=== PATIENT | female | born 1955 | race Caucasian/White ===

== ENCOUNTER 2016-05-15 08:16 | Inpatient (IN) | payer OTHER ==
--- NOTE | 2016-05-15 08:53 | EDPHY ---
H & P Stated Complaint: 1 hr epiisode this am 0630 of word finding difficulty and l hand weakness Time Seen by Provider: 05/15/16 08:25 - Personal History Current Tetanus/Diphtheria Vaccine: Yes Tetanus Vaccine Date: last 10 years - Medical/Surgical History Hx Asthma: No Hx Chronic Respiratory Disease: No Hx Diabetes: No Hx Cardiac Disease: Yes Hx Renal Disease: No Hx Cirrhosis: No Hx Alcoholism: No Hx HIV/AIDS: No Hx Splenectomy or Spleen Trauma: Yes Other PMH: psoriatic arthrithritis, heart attack, bypass with five stents and pacemaker. 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 - Social History Smoking Status: Never smoked Constitutional: Initial Vital Signs Temperature (C) 36.6 C 05/15/16 08:20 Heart Rate 90 05/15/16 08:20 Respiratory Rate 16 05/15/16 08:20 Blood Pressure 181/80 H 05/15/16 08:20 O2 Sat (%) 92 05/15/16 08:20 O2 Delivery Mode Room Air Allergies/Adverse Reactions: azithromycin [Azithromycin] Allergy (Verified 05/15/16 08:19) lactose [Lactose] Allergy (Verified 05/15/16 08:19) meperidine HCl [From Demerol] Allergy (Verified 05/15/16 08:19) oxycodone HCl [From Percocet] Allergy (Verified 05/15/16 08:19) Home Medications: Medication Instructions Recorded Aspirin [Aspirin 81mg (*)] 81 mg PO DAILY 01/05/15 FLUoxetine [Prozac 20 MG (*)] 20 mg PO DAILY 01/05/15 Hydrocodone/Acetaminophen [Vicodin 1 tab PO Q6 PRN 01/05/15 5-300 mg Tablet] LORazepam [Ativan (*)] 0.5 mg PO Q6 PRN 01/05/15 Methotrexate Sodium [Rheumatrex] 10 mg PO WE@0900 01/05/15 Methotrexate Sodium [Rheumatrex] 10 mg PO WE@1800 01/05/15 Metoprolol Succinate Xr [Toprol Xl 25 mg PO DAILY 01/05/15 25 mg (*)] Ramipril [Altace 2.5mg (*)] 2.5 mg PO HS 01/05/15 metFORMIN HCL [Glucophage 500 mg 500 mg PO BID 01/05/15 (*)] morphINE IR [morphINE IR 15 mg (*)] 15 mg PO HS 01/05/15 Medical Decision Making ED Course/Re-evaluation: CHIEF COMPLAINT: Hand weakness, speech difficulty HISTORY OF PRESENT ILLNESS: The patient is a 60 y/o female arriving with her complaining of a resolved episode of right hand weakness and speech difficulty this morning. She describes difficulty picking up a plate and being unable to figure out how to set it down and ultimately dropping it. Her reports the patient had associated difficulty with her speech. He describes her being unable to answer questions appropriately for several minutes even after the hand weakness improved. No associated weakness or paresthesias in other extremities or face. She does note a mild headache through the weekend. She has a significant cardiac history, but has never experienced these symptoms previously. She takes a baby aspirin, but was taken off her Plavix 3 months ago. She feels completely normal at time of assessment. REVIEW OF SYSTEMS: A 10 point review of systems was performed and is negative with the exception of the elements mentioned in the history of present illness. PHYSICAL EXAM: General Appearance: Alert, well hydrated, appropriate, and non-toxic appearing. Head: Atraumatic without scalp tenderness or obvious injury Eyes: Pupils equal, round, reactive to light and accommodation, EOMI, no trauma , no injection. Ears: Clear bilaterally, no perforation, normal landmarks Nose: Atraumatic, no rhinorrhea, clear. Throat: There is no erythema or exudates, no lesions, normal tonsils, mucus membranes moist. Neck: Supple, 2+ carotid upstroke, non-tender, no lymphadenopathy. Respiratory: No retractions, no distress, no wheezes, and no accessory muscle use. Lungs are clear to auscultation bilaterally. Cardiovascular: Regular rate and rhythm, no murmurs, rubs, or gallops. Bilateral carotid, radial, dorsalis pedis, and posterior tibial pulses intact. Good capillary refill all extremities. Gastrointestinal: Abdomen is soft, non-tender, non-distended, no masses, no rebound, no guarding, no peritoneal signs. Musculoskeletal: Normal active ROM of all extremities, atraumatic. Neurological: Alert, appropriate, and interactive. The patient has normal DTRs and non-focal cranial nerves, motor, sensory, and cerebellar exam. Normal straight-leg raise. No pronator drift. No facial droop. Skin: No rashes, good turgor, no nodules on palpation. PAST MEDICAL HISTORY: Psoriasis, Psoriatic arthritis, CAD, Hodgkin lymphoma PAST SURGICAL HISTORY: Pacemaker due to complete heart block, 5 stents 7 years ago, splenectomy, hypertension Prior medical records reviewed including admission 01/05/15 for fever. SOCIAL HISTORY: at bedside [facility] Worker: Dr. Ceballos DIAGNOSTICS/PROCEDURES/CRITICAL CARE TIME: Study: CT of the Head with and without IV contrast Indication: TIA symptoms, unable to get MRI Results: CT scan of the head was obtained. The results of the study are negative. The study was read by the radiologist, Dr. Kenyon. I viewed the images myself on the PACS system. The 12 lead EKG was interpreted by myself. Sinus rhythm rate 85. See hard copy and/or "tracemaster" electronic copy for interpretation. DIFFERENTIAL DIAGNOSIS: The differential diagnosis for the patient's neurologic deficits included but was not limited to peripheral causes, central causes including CVA, TIA, electrolyte abnormalities and dehydration, cardiogenic causes, atypical causes like migraine syndrome. MEDICAL DECISION MAKING: This is a 60 y/o female with a history of CAD status post 5 stents and psoriatic arthritis presenting after a short episode of TIA symptoms this morning shortly after waking. She and her describe right hand weakness and inappropriate speech that lasted for around 45 minutes. She is asymptomatic at time of assessment and has a normal neuro exam. She is unable to receive an MRI due to her pacemaker, so we will plan on a head CT with and without contrast due to her TIA symptoms. IV established, labs drawn, EKG ordered. 0925: CT is negative per Dr. Kenyon. Labs are unremarkable. EKG shows sinus rhythm. Plan to consult neurology. 0930: Consulted with Dr. Marshall, neurologist. He agrees with my plan for admission for full TIA work up. I discussed this with the patient and she agrees to admission. 0943: Dr. Angelo accepts admission to the [facility]. - Data Points Laboratory Results: Laboratory Results 05/15/16 08:35 05/15/16 08:35 05/15/16 05/15/16 08:35 08:35 WBC 13.00 10^3/uL H 10^3/uL (3.80-9.50) RBC 4.59 10^6/uL 10^6/uL (4.18-5.33) Hgb 13.9 g/dL g/dL (12.6-16.3) Hct 43.0 % % (38.0-47.0) MCV 93.7 fL fL (81.5-99.8) MCH 30.3 pg pg (27.9-34.1) MCHC 32.3 g/dL L g/dL (32.4-36.7) RDW 17.6 % H % (11.5-15.2) Plt Count 401 10^3/uL H 10^3/uL (150-400) MPV 12.1 fL H fL (8.7-11.7) Neut % (Auto) 63.5 % % (39.3-74.2) Lymph % (Auto) 23.3 % % (15.0-45.0) [place] % (Auto) 9.4 % % (4.5-13.0) Eos % (Auto) 2.5 % % (0.6-7.6) Baso % (Auto) 0.9 % % (0.3-1.7) Nucleat RBC Rel Count 0.2 % % (0.0-0.2) Absolute Neuts (auto) 8.26 10^3/uL H 10^3/uL (1.70-6.50) Absolute Lymphs (auto) 3.03 10^3/uL H 10^3/uL (1.00-3.00) Absolute Monos (auto) 1.22 10^3/uL H 10^3/uL (0.30-0.80) Absolute Eos (auto) 0.32 10^3/uL 10^3/uL (0.03-0.40) Absolute Basos (auto) 0.12 10^3/uL H 10^3/uL (0.02-0.10) Absolute Nucleated RBC 0.03 10^3/uL H 10^3/uL (0-0.01) Immature Gran % 0.4 % % (0.0-1.1) Immature Gran # 0.05 10^3/uL 10^3/uL (0.00-0.10) Sodium 140 mEq/L mEq/L (134-144) Potassium 4.1 mEq/L mEq/L (3.5-5.2) Chloride 102 mEq/L mEq/L (97-110) Carbon Dioxide 28 mEq/l mEq/l (22-31) Anion Gap 10 mEq/L mEq/L (8-16) BUN 18 mg/dL mg/dL (7-23) Creatinine 0.6 mg/dL mg/dL (0.6-1.0) Estimated GFR > 60 Glucose 113 mg/dL H mg/dL (70-100) Calcium 9.8 mg/dL mg/dL (8.5-10.4) Troponin I < 0.012 ng/mL ng/mL (0-0.034) Departure - Departure Disposition: [facility] Inpatient Acute Clinical Impression: TIA (transient ischemic attack) Qualifiers: Transient cerebral ischemia type: other Qualified Code(s): G45.8 - Other transient cerebral ischemic attacks and related syndromes Condition: Good Referrals: Nasra Paredes MD [Primary Care Provider] - As per Instructions Report Scribed for: Armani Multani Report Scribed by: Domonique Smallwood Date of Report: 05/15/16 Time of Report: 09:37
[2016-05-15 09:00] LABS: % IMMATURE GRANULYOCYTES 0.4 % (0.0-1.1); ABSOLUTE IMMATURE GRANULOCYTES 0.05 10^3/uL (0.00-0.10); ABSOLUTE NRBC COUNT 0.03 10^3/uL (0-0.01); ADD DIFF? NO; ADD MORPH? NO; ADD SCAN? NO; ATYPICAL LYMPHOCYTE FLAG 0 (0-99); FRAGMENT RBC FLAG 20 (0-99); HEMOGLOBIN 13.9 g/dL (12.6-16.3); LEFT SHIFT FLG 0 (0-99); LIPEMIA HEMOLYSIS FLAG 80 (0-99); MEAN CELL HEMOGLOBIN 30.3 pg (27.9-34.1); MEAN CELL HEMOGLOBIN CONCENTR. 32.3 g/dL (32.4-36.7); MEAN CELL VOLUME 93.7 fL (81.5-99.8); MEAN PLATELET VOLUME 12.1 fL (8.7-11.7); NRBC-AUTO% 0.2 % (0.0-0.2); PLATELET CLUMPS FLAG 0 (0-99); PLATELET COUNT 401 10^3/uL (150-400); RED BLOOD CELL COUNT 4.59 10^6/uL (4.18-5.33); RED CELL DISTRIBUTION WIDTH 17.6 % (11.5-15.2)
[2016-05-15 09:06] LABS: ANION GAP 10 mEq/L (8-16); CALCIUM 9.8 mg/dL (8.5-10.4); CARBON DIOXIDE 28 mEq/l (22-31); CHLORIDE 102 mEq/L (97-110); CREATININE 0.6 mg/dL (0.6-1.0); GLOMERULAR FILTRATION RATE > 60; GLUCOSE 113 mg/dL (70-100); POTASSIUM 4.1 mEq/L (3.5-5.2); SODIUM 140 mEq/L (134-144)
[2016-05-15 09:18] LABS: TROPONIN I < 0.012 ng/mL (0-0.034)
--- NOTE | 2016-05-15 09:26 | CPEKG ---
Heart Rate: 85 RR Interval: 706 P-R Interval: 208 QRSD Interval: 92 QT Interval: 380 QTC Interval: 452 P [place]: 49 QRS [place]: -6 T Wave [place]: 8 EKG Severity - BORDERLINE ECG - EKG Impression: SINUS RHYTHM EKG Impression: CONSIDER INFERIOR INFARCT EKG Impression: CONSIDER ANTERIOR INFARCT Electronically Signed By: Armani Multani 15-May-2016 15:18:59
[2016-05-15] MEDS ORDERED: ASPIRIN 81 MG CHEWABLE TAB PO ONE (09:37)
[2016-05-15] MEDS ORDERED: IOPAMIDOL (ISOVUE-370) 150 ML BTL IV ONE (09:44)
[2016-05-15] MEDS ORDERED: NS 1,000 ML IV SCH (11:15)
[2016-05-15] MEDS ORDERED: NON-FORMULARY NEW DRUG (Hydrocodone/Acetaminophen [Norco 7.5-325 Tablet] 1 EACH) PO PRN (11:18)
[2016-05-15] MEDS ORDERED: D50W 25 GM/50 ML SYR IVP PRN (11:19)
[2016-05-15] MEDS ORDERED: HYDROCODONE/APAP 10/325 TAB PO PRN (11:33)
[2016-05-15 11:35] LABS: HEMOGLOBIN A1C 6.9 % (4.0-6.0)
--- NOTE | 2016-05-15 13:04 | PDEACUHP ---
History and Physical - Chief Complaint right hand weakness - History of Present Illness 60 yo F with PMH of CAD sp multiple stents as well as psoriatic arthritis presenting with brief episode of right hand weakness associated with word finding difficulties and slurred speech. She notes she was feeding her cats this morning and when she was carrying one of the plates to the kitchen in her right hand, she dropped it unexpectedly. She picked it up again and then when she was trying to place it on the counter, could not release it properly and dropped it again. Her was with her when this happened and he noticed she also didn't look right in her eyes, they seemed somewhat glazed over and she was not speaking normally--the words she was saying did not make sense and were slurred. She recalls this and notes that she knew what she wanted to say, but was not able to get the right words to come out. This entire episode lasted less than an hour and has since completely resolved. She has never had similar issues in the past. She has been getting over an URI recently and last night she took a celebrex which she does not normally do. She has had no chest pain, palpitations or sob. She has no issues with vision or hearing, no other numbness or weakness. History Information - Allergies/Home Medication List Allergies/Adverse Reactions: azithromycin [Azithromycin] Allergy (Verified 05/15/16 08:19) lactose [Lactose] Allergy (Verified 05/15/16 08:19) meperidine HCl [From Demerol] Allergy (Verified 05/15/16 08:19) oxycodone HCl [From Percocet] Allergy (Verified 05/15/16 08:19) Home Medications: Aspirin [Aspirin 81mg (*)] 81 mg PO DAILY 01/05/15 [Last Taken 05/14/16] FLUoxetine [Prozac 20 MG (*)] 20 mg PO DAILY 01/05/15 [Last Taken 05/14/16] Methotrexate Sodium [Rheumatrex] 10 mg PO WE@0900 01/05/15 [Last Taken 05/10/16] Methotrexate Sodium [Rheumatrex] 10 mg PO WE@1800 01/05/15 [Last Taken 05/10/16] Metoprolol Succinate Xr [Toprol Xl 25 mg (*)] 25 mg PO BID 01/05/15 [Last Taken 05/14/16] Ramipril [Altace 2.5mg (*)] 2.5 mg PO HS 01/05/15 [Last Taken 05/13/16] metFORMIN HCL [Glucophage 500 mg (*)] 500 mg PO BID 01/05/15 [Last Taken ] Hydrocodone/Acetaminophen [[place] 7.5-325 Tablet] 1 each PO Q6H PRN 05/15/16 [ Last Taken 05/14/16] LORazepam [Ativan (*)] 1 mg PO HS PRN 05/15/16 [Last Taken 05/14/16] Levothyroxine [Synthroid 50 mcg (*)] 50 mcg PO DAILY06 05/15/16 [Last Taken ] morphINE SR [Ms Contin/Oramorph 15 mg (*)] 15 mg PO HS 05/15/16 [Last Taken ] I have personally reviewed and updated: family history, medical history, social history, surgical history - Past Medical History arthritis (psoriatic arthritis on chronic immune suppression), coronary artery disease (sp 5 stents), cancer (Hodgkin's lymphoma ), diabetes type 2, fibromyalgia Additional medical history: chronic pain with continuous narcotic use and dependency. 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, , live in [place] Review of Systems ROS: 10pt was reviewed & negative except for what was stated in HPI & below Physical Exam Temp Pulse Resp BP Pulse Ox 36.6 C 83 19 140/69 H 95 05/15/16 08:20 05/15/16 11:02 05/15/16 11:02 05/15/16 11:02 05/15/16 11:02 Constitutional: no apparent distress, appears nourished Eyes: PERRL, anicteric sclera Ears, Nose, Mouth, Throat: moist mucous membranes, hearing normal, ears appear normal Cardiovascular: regular rate and rhythym, no murmur, rub, or gallop, No edema Respiratory: no respiratory distress, no rales or rhonchi, clear to auscultation Gastrointestinal: normoactive bowel sounds, soft, non-tender abdomen, No guarding, No rebound, No distension Skin: warm, normal color Musculoskeletal: full muscle strength, no muscle tenderness, No asymmetric calves, No abnormal gait Neurologic: AAOx3, sensation intact bilaterally, CN II-XII Intact, No weakness, No numbness Psychiatric: interacting appropriately, not anxious, not encephalopathic Lab Data & Imaging Review 05/15/16 08:35 05/15/16 08:35 WBC 13.00 10^3/uL (3.80-9.50) H 05/15/16 08:35 RBC 4.59 10^6/uL (4.18-5.33) 05/15/16 08:35 Hgb 13.9 g/dL (12.6-16.3) 05/15/16 08:35 Hct 43.0 % (38.0-47.0) 05/15/16 08:35 MCV 93.7 fL (81.5-99.8) 05/15/16 08:35 MCH 30.3 pg (27.9-34.1) 05/15/16 08:35 MCHC 32.3 g/dL (32.4-36.7) L 05/15/16 08:35 RDW 17.6 % (11.5-15.2) H 05/15/16 08:35 Plt Count 401 10^3/uL (150-400) H 05/15/16 08:35 MPV 12.1 fL (8.7-11.7) H 05/15/16 08:35 Neut % (Auto) 63.5 % (39.3-74.2) 05/15/16 08:35 Lymph % (Auto) 23.3 % (15.0-45.0) 05/15/16 08:35 [place] % (Auto) 9.4 % (4.5-13.0) 05/15/16 08:35 Eos % (Auto) 2.5 % (0.6-7.6) 05/15/16 08:35 Baso % (Auto) 0.9 % (0.3-1.7) 05/15/16 08:35 Nucleat RBC Rel Count 0.2 % (0.0-0.2) 05/15/16 08:35 Absolute Neuts (auto) 8.26 10^3/uL (1.70-6.50) H 05/15/16 08:35 Absolute Lymphs (auto) 3.03 10^3/uL (1.00-3.00) H 05/15/16 08:35 Absolute Monos (auto) 1.22 10^3/uL (0.30-0.80) H 05/15/16 08:35 Absolute Eos (auto) 0.32 10^3/uL (0.03-0.40) 05/15/16 08:35 Absolute Basos (auto) 0.12 10^3/uL (0.02-0.10) H 05/15/16 08:35 Absolute Nucleated RBC 0.03 10^3/uL (0-0.01) H 05/15/16 08:35 Immature Gran % 0.4 % (0.0-1.1) 05/15/16 08:35 Immature Gran # 0.05 10^3/uL (0.00-0.10) 05/15/16 08:35 Sodium 140 mEq/L (134-144) 05/15/16 08:35 Potassium 4.1 mEq/L (3.5-5.2) 05/15/16 08:35 Chloride 102 mEq/L (97-110) 05/15/16 08:35 Carbon Dioxide 28 mEq/l (22-31) 05/15/16 08:35 Anion Gap 10 mEq/L (8-16) 05/15/16 08:35 BUN 18 mg/dL (7-23) 05/15/16 08:35 Creatinine 0.6 mg/dL (0.6-1.0) 05/15/16 08:35 Estimated GFR > 60 05/15/16 08:35 Glucose 113 mg/dL (70-100) H 05/15/16 08:35 Hemoglobin A1c 6.9 % (4.0-6.0) H 05/15/16 Unknown Estim Average Glucose 151 mg/dL (68-126) H 05/15/16 Unknown Calcium 9.8 mg/dL (8.5-10.4) 05/15/16 08:35 Troponin I < 0.012 ng/mL (0-0.034) 05/15/16 08:35 Visualized and Interpreted imaging results: Yes Interpretation: head CT: negative. neck CTA: completely occluded left ICA, patent B vert arteries. head CTA: non occlusive distal M1 segment Visualized and Interpreted EKG results: Yes EKG Interpretation: Positive for: normal sinsus rhythm Assessment & Plan Assessment: TIA (transient ischemic attack) (Acute) 52 yo F with PMH of CAD, DM presenting with TIA # TIA: with brief right handed weakness with associated slurred speech and expressive aphasia. W/u thus far including head CT/head and neck CTA showing completely occluded left ICA but otherwise unremarkable (no MRI given PPM). Pacer interrogated without any significant arrythmias (PVCs only but remote). Echo performed and report pending. Patient was on asa [employer] so will transition to plavix. # occluded Left ICA: complete occlusion so not amenable to surgical intervention , location would explain her sxs however. Neuro to evaluate. # CAD: with hx of [place] and 5 stents, no chest pain or other acute issues, will need to f/u with Dr. Ceballos in the next couple of days # psoriatic arthritis: continue mtx # chronic pain with continuous narcotic use and dependency: continue op meds, no acute issues # dispo: observation status, likely can dc later today Patient new to my care. Old records reviewed and summarized as above. Care plan reviewed with Dr. Marshall including plans regarding completely occluded ICA. Further hx obtained from patients present at bedside.
[2016-05-15] MEDS: INSULIN LISPRO 100 UNIT/ML SC SCH ×2 (14:21→22:16)
[2016-05-15 15:05] LABS: CHOLESTEROL 246 mg/dL (140-220); CHOLESTEROL/HDL RATIO 5.72 RATIO (1.00-4.44); HIGH DENSITY LIPOPROTEIN 43 mg/dL (40-85); LDL/HDL RATIO 3.72 RATIO (1.00-3.22); LOW DENSITY LIPOPROTEIN 160 mg/dL (80-100); NON-HIGH DENSITY LIPOPROTEIN 203 mg/dL (90-129); TRIGLYCERIDE 219 mg/dL (35-135); VERY LOW DENSITY LIPOPROTEINS 43 mg/dL (8-25)
[2016-05-15] MEDS ORDERED: HEPARIN 10,000 UNIT/10 ML MDV IVP PRN (16:01)
[2016-05-15 17:17] LABS: % IMMATURE GRANULYOCYTES 0.5 % (0.0-1.1); ABSOLUTE IMMATURE GRANULOCYTES 0.06 10^3/uL (0.00-0.10); ABSOLUTE NRBC COUNT 0.03 10^3/uL (0-0.01); ADD DIFF? NO; ADD MORPH? NO; ADD SCAN? NO; ATYPICAL LYMPHOCYTE FLAG 0 (0-99); FRAGMENT RBC FLAG 10 (0-99); HEMATOCRIT 38.7 % (38.0-47.0); HEMOGLOBIN 12.6 g/dL (12.6-16.3); LEFT SHIFT FLG 0 (0-99); LIPEMIA HEMOLYSIS FLAG 80 (0-99); MEAN CELL HEMOGLOBIN 30.1 pg (27.9-34.1); MEAN CELL HEMOGLOBIN CONCENTR. 32.6 g/dL (32.4-36.7); MEAN CELL VOLUME 92.4 fL (81.5-99.8); NRBC-AUTO% 0.2 % (0.0-0.2); PLATELET CLUMPS FLAG 0 (0-99); PLATELET COUNT 368 10^3/uL (150-400); RED BLOOD CELL COUNT 4.19 10^6/uL (4.18-5.33); RED CELL DISTRIBUTION WIDTH 17.4 % (11.5-15.2)
[2016-05-15 17:56] LABS: INR 1.08 (0.83-1.16); PROTIME(PATIENT) 13.9 SEC (12.0-15.0)
[2016-05-15 17:57] LABS: APTT 26.9 SEC (23.0-38.0)
[2016-05-15] MEDS: HEPARIN/DEXTROSE 500 ML IV SCH (18:27)
--- NOTE | 2016-05-15 19:05 | ECHO ---
[id number] + + [address] : : [place] [address] : : [phone] + + Adult Echocardiographic Report + -----+ :Name: LAXMI KELLY JStudy Date: 05/15/2016 12:33 PM : : Hospital Admission Number: [id number] Location : 141: :: 1955 Gender: Female Height: 66 in : :Age: 60 yrs Race: WH Weight: 174 lb : :Reason For Study: Eval LV Fx : : BSA: 1.9 meters2 : :History: Ischemic Stroke, Hx of stents x 5 : + -----+ MMode/2D Measurements \T\ Calculations IVSd: 0.81 cm LVIDd: 4.8 cm FS: 37.3 % LVPWd: 1.1 cm LVIDs: 3.0 cm EDV(Teich): 105.4 ml ESV(Teich): 34.6 ml EF(Teich): 67.2 % Normal Measurement Values: + + :LVIDd (3.5-5.7cm) IVSd (0.6-1.1cm) LVPWd (0.6-1.1cm) Aortic Root (2.0-3.7cm)Left Atrium (1.5-4.0cm): :LV Vol(d) (76-115ml) LV Vol(s) (29-48ml) Ejec Fraction (50-65%)PV Roque (0.6- 1.2m/s) TV Roque (0.4-1.0m/s) : :MV E Roque (0.8-1.0m/s)MV A Roque (0.3-1.0m/s)LVOT Roque (0.7-1.2m/s) Asc Ao Roque ( 0.9-1.8m/s) : + + Doppler Measurements \T\ Calculations MV E max roque: Ao V2 max: LV V1 max: PA V2 max: 89.8 cm/sec 121.0 cm/sec 51.8 cm/sec 88.2 cm/sec MV A max roque: Ao max P.9 mmHgLV V1 max PG: PA max P.0 cm/sec 1.1 mmHg 3.1 mmHg MV E/A: 0.79 TR max roque: 233.0 cm/sec TR max P.7 mmHg RAP systole: 5.0 mmHg RVSP(TR): 26.7 mmHg Left Ventricle The left ventricle is normal in size. There is mild concentric left ventricular hypertrophy. The left ventricular ejection fraction is normal. There is Doppler evidence for diastolic dysfunction. Ejection Fraction = 67%. The left ventricular wall motion is normal. Right Ventricle The right ventricle is normal size. Atria The left atrial size is normal. Right atrial size is normal. Injection of contrast documented no interatrial shunt. The interatrial septum is intact with no evidence for an atrial septal defect. Mitral Valve The mitral valve is normal. There is no mitral valve stenosis. There is no mitral regurgitation noted. Tricuspid Valve Normal tricuspid valve. There is trace tricuspid regurgitation. Right ventricular systolic pressure is normal. Aortic Valve The aortic valve is normal in structure and function. The aortic valve is trileaflet. The aortic valve opens well. There is no aortic stenosis. There is no aortic insufficiency. Pulmonic Valve The pulmonic valve is normal in structure and function. There is no pulmonic valvular regurgitation. Great Vessels The aortic root is normal size. Pericardium/Pleural There is no pericardial effusion. There is a fat pad seen. Conclusion A complete two-dimensional transthoracic echocardiogram was performed (2D, M-mode, Doppler and color flow Doppler). There is no obvious source of embolus identified. If one is highly clinically suspected, then transesophageal echocardiography should be considered. There is mild concentric left ventricular hypertrophy. The left ventricular ejection fraction is normal. There is Doppler evidence for diastolic dysfunction. Ejection Fraction = 67%. The left ventricular wall motion is normal. There is trace tricuspid regurgitation. Right ventricular systolic pressure is normal. The aortic valve is normal in structure and function. The aortic valve is trileaflet. There is no pericardial effusion. There is a fat pad seen. Injection of contrast documented no interatrial shunt. The interatrial septum is intact with no evidence for an atrial septal defect. Final Reading Physician: Brown Gomez signed on 05/15/2016 07:04 PM Ordering Physician: Grabiel Marshall Performed By: Raphael Barclay, CS
[2016-05-15] MEDS ORDERED: HYDROCODONE/APAP 5/325 TAB PO PRN (20:11)
--- NOTE | 2016-05-15 21:56 | GCON ---
INPATIENT CONSULTATION NOTE. DATE OF CONSULTATION: 05/15/2016 CHIEF COMPLAINT: Suspected stroke. HISTORY OF PRESENT ILLNESS: Dr. Matt Angel of the hospitalist service consulted Neurology for evaluation of patient's acute stroke. Results of the evaluation were discussed with Dr. Carolyne Quintero, the hospitalist buttoner. This is a 60-year-old female with a prior history of significant heart disease with pacemaker who reported on the morning of May 15, 2015, she had an episode of transient right hand weakness and difficulty speaking. This lasted 45-60 minutes then completely resolved those symptoms afterwards. This has never happened before or happened since. She has been on aspirin and Plavix for cardiac problems but stopped the Plavix 3 months ago. She currently feels back to normal. Brain MRI was not possible due to her pacemaker. A head CT was unremarkable. CT angiogram of the head and neck showed an occluded left ICA as well as a left MCA partial thrombus. The patient has had no clinical neurologic problems since being admitted into the hospital. After the partial thrombus was detected, I personally called the stroke expert at [facility] and I discussed the case with him. He recommended beginning the heparin without a bolus and repeating a CT angiogram in 2-3 days later to ensure the partial thrombus had resolved. Otherwise, he recommended routine stroke evaluation. 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 SOCIAL HISTORY: Prior smoker but not smoking now. FAMILY HISTORY: Noncontributory. HOME MEDICATIONS: Aspirin 81 mg daily, Prozac, Vicodin, lorazepam, methotrexate , metoprolol, ramipril, metformin, morphine. ALLERGIES: Azithromycin, lactose, meperidine, oxycodone. REVIEW OF SYSTEMS: A 10-point review of systems negative except was placed in the HPI. PHYSICAL EXAM: VITAL SIGNS: Blood pressure is 181/80, heart rate 90, respirations 16, saturating 92% on room air, temperature 36.6 degrees Celsius. GENERAL: No acute distress. EYES: Funduscopic exam could not visualize optic discs. LUNGS: Clear to auscultation bilaterally. No rhonchi or rales. HEART : Regular rate and rhythm. No murmurs. No carotid bruits auscultated. NEUROLOGIC: Mental status: Alert and oriented to person, place and name. Memory, attention, language and fund of knowledge all appear intact. Cranial nerves: Pupils equal, round, react to light. Visual escalante full to confrontation. Extraocular muscles intact. Bilateral face intact to sensation and motor movement. Hearing intact to conversation. Uvula rises symmetrically. Tongue protrudes midline. Trap was 5/5 strength. Motor exam: Normal tone and strength in all 4 extremities. Sensory exam: All 4 extremities intact to light touch. No neglect. Reflexes: Bilateral patella 2/ 4. Coordination, bilateral [id number], nbro-ky-afml, rapid alternating movements are normal. Gait deferred. NIH stroke scale is 0. LABS: On May 15, 2016: CBC with a white blood cell count of 13, platelets 401. Troponin negative. Chemistry with glucose 113. RADIOLOGY: May 15, 2016, head CT shows no acute changes. I personally visualized this study. May 15, 2016, a CT angiogram of the head and neck showed occluded left ICA from the bifurcation down. There is a nonocclusive partial thrombosis in the small but distal left M1 segment. ASSESSMENT: 1. 45-60 minutes of speech disturbance and right arm weakness, most consistent with a transient ischemic attack or small stroke. 2. Distal small left M1 nonocclusive thrombus. 3. Occluded left ICA. 4. History of significant heart disease with current pacemaker. RECOMMENDATIONS: 1. Blood pressure goal less than 220/120 for the next 48 hours. 2. Hold anti-platelet agents and begin heparin without a bolus. Will repeat CT angiogram on Sunday to see if small thrombus has resolved per discussion the [facility] stroke expert. 3. H1AC pending. 4. Lipid panel pending. 5. DVT prophylaxis with heparin and SCDs. 6. Echocardiogram pending. 7. Twenty-four telemetry, if this is unremarkable or if in paroxysmal atrial fibrillation, marketing account executive rhythm monitoring will be via interpretation by her primary Rod Bending Machine Operator, Dr. Ceballos. 8. CT angiogram of the head, repeated on Sunday to see if a small nonocclusive thrombus resolved. 9. When heparin is no longer needed will plan on stopping outpatient aspirin and beginning Plavix 75 mg daily for long-term stroke prevention. 10. Followup 5 weeks after hospital discharge with the Neurology service is doing. DISCUSSION: It appears the patient likely is prone to develop atherosclerotic disease given her prior heart disease. It looks as if she has included her left ICA, likely chronically as she has not suffered a large stroke. Likely this had some distal propagation with an embolic shower from this left ICA occlusion causing embolization to her left M1. Likely we are witnessing some partial thrombus left over from that. I do not believe the patient likely had a significant stroke as she currently has no neurologic problems although we were not able to obtain a pacemaker to say exactly how much ischemia she may have had. 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 The patient does understand the increased risk of bleeding, particularly if there was a small stroke. However, on weighing the risks and benefits, it was felt that this was the best way to ensure the patient does well long-term. She and her fully understand the risk. Neurology will continue to follow closely. /[id number]/MODL MTDD
[2016-05-15] MEDS: morphINE SR 15 MG TAB PO SCH (22:10)
[2016-05-15] MEDS: RAMIPRIL 2.5 MG CAP PO SCH (22:11)
[2016-05-15] MEDS: METOPROLOL SUCCINATE XR 25 MG TAB PO SCH (22:11)
[2016-05-16] MEDS: LORazepam 1 MG TAB PO PRN ×2 (01:26→22:10)
[2016-05-16 06:27] LABS: % IMMATURE GRANULYOCYTES 0.2 % (0.0-1.1); ABSOLUTE IMMATURE GRANULOCYTES 0.02 10^3/uL (0.00-0.10); ABSOLUTE NRBC COUNT 0.05 10^3/uL (0-0.01); ADD DIFF? NO; ADD MORPH? NO; ADD SCAN? NO; ATYPICAL LYMPHOCYTE FLAG 10 (0-99); FRAGMENT RBC FLAG 10 (0-99); HEMATOCRIT 37.4 % (38.0-47.0); LEFT SHIFT FLG 0 (0-99); LIPEMIA HEMOLYSIS FLAG 80 (0-99); MEAN CELL HEMOGLOBIN 30.9 pg (27.9-34.1); MEAN CELL HEMOGLOBIN CONCENTR. 32.1 g/dL (32.4-36.7); MEAN CELL VOLUME 96.4 fL (81.5-99.8); NRBC-AUTO% 0.5 % (0.0-0.2); PLATELET CLUMPS FLAG 0 (0-99); PLATELET COUNT 327 10^3/uL (150-400); RED BLOOD CELL COUNT 3.88 10^6/uL (4.18-5.33); RED CELL DISTRIBUTION WIDTH 17.6 % (11.5-15.2)
[2016-05-16 06:39] LABS: ANION GAP 7 mEq/L (8-16); CALCIUM 8.9 mg/dL (8.5-10.4); CARBON DIOXIDE 24 mEq/l (22-31); CHLORIDE 110 mEq/L (97-110); CREATININE 0.5 mg/dL (0.6-1.0); GLOMERULAR FILTRATION RATE > 60; GLUCOSE 111 mg/dL (70-100); POTASSIUM 4.1 mEq/L (3.5-5.2); SODIUM 141 mEq/L (134-144)
[2016-05-16] MEDS: LEVOTHYROXINE 50 MCG TAB PO SCH (06:49)
[2016-05-16] MEDS: FLUoxetine 20 MG CAP PO SCH (07:45)
[2016-05-16] MEDS: METOPROLOL SUCCINATE XR 25 MG TAB PO SCH ×2 (07:45→21:21)
[2016-05-16] MEDS: INSULIN LISPRO 100 UNIT/ML SC SCH ×3 (07:46→19:05)
[2016-05-16] MEDS: ATORVASTATIN CALCIUM 40 MG TAB PO SCH (07:46)
[2016-05-16] MEDS ORDERED: ASPIRIN 81 MG CHEWABLE TAB PO SCH (09:00)
[2016-05-16] MEDS: HEPARIN/DEXTROSE 500 ML IV SCH (13:24)
--- NOTE | 2016-05-16 14:35 | HOSPPROG ---
Hospitalist Progress Note Assessment/Plan: 60 yo F with PMH of CAD, psoriatic arthritis admitted with TIA in setting of completely occluded L IcA and distal M1 segment thrombus # TIA: with brief right handed weakness with associated slurred speech and expressive aphasia. W/u thus far including head CT/head and neck CTA showing completely occluded left ICA as well as distal M1 segment thrombus. In review with neurology, plan is for heparin gtt x 48 hours with f/u CTA to determine if thrombus resolved. No further sxs since admission. Will dc home on plavix. # occluded Left ICA: as above, no indication for surgical intervention given complete occlusion # CAD: with hx of [place] and 5 stents, no chest pain or other acute issues, will need to f/u with Dr. Ceballos # psoriatic arthritis: continue mtx # chronic pain with continuous narcotic use and dependency: continue op meds, no acute issues # dispo: IP status, will need > 48 hours stay for eval/mgmt of above Care plan reviewed with patients present at bedside. Subjective: no significant overnight events, no further sxs Objective: Vital Signs Temp Pulse Resp BP Pulse Ox 36.8 C 83 18 130/84 H 92 05/16/16 07:48 05/16/16 13:55 05/16/16 13:55 05/16/16 13:55 05/16/16 13:55 Laboratory Results 05/16/16 05:30 05/16/16 05:30 PT 13.9 SEC (12.0-15.0) 05/15/16 17:05 INR 1.08 (0.83-1.16) 05/15/16 17:05 awake alert nad anicteric op clear rrr no mrg cta b soft +bs no cce warm dry well perfused oriented appropriate ICD10 Worksheet Patient Problems: Problems Problem Status Onset PNA (pneumonia) Acute CAD (coronary artery disease) Acute Leukocytosis Acute Rheumatoid arthritis Chronic History of splenectomy Chronic TIA (transient ischemic attack) Acute
--- NOTE | 2016-05-16 17:22 | NEUROPROG ---
Assessment: CC: F/U for M1 thrombus, TIA ~ HPI: This is a 60-year-old female with a prior history of significant heart disease with pacemaker who reported on the morning of May 15, 2015, she had an episode of transient right hand weakness and difficulty speaking.~ This lasted 45-60 minutes then completely resolved those symptoms afterwards.~ This has never happened before or happened since.~ She has been on aspirin and Plavix for cardiac problems but stopped the Plavix 3 months ago.~ She currently feels back to normal.~ Brain MRI was not possible due to her pacemaker.~ A head CT was unremarkable.~ CT angiogram of the head and neck showed an occluded left ICA as well as a left MCA partial thrombus.~ The patient has had no clinical neurologic problems since being admitted into the hospital.~ After the partial thrombus was detected, I personally called the stroke expert at [facility] and I discussed the case with him.~ He recommended beginning the heparin without a bolus and repeating a CT angiogram in 2-3 days later to ensure the partial thrombus had resolved.~ Otherwise, he recommended routine stroke evaluation. 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 ~ SHx:~ Prior smoker but not smoking now. FHx:~ Noncontributory. ~ O: 05/15/16- NIH stroke scale is 0. ~ Labs: 05/16/16- LDL 160, H1AC 6.9 ~ RADIOLOGY:~ - 05/15/16- head CT shows no acute changes - 05/15/16, a CT angiogram of the head and neck showed occluded left ICA from the bifurcation down.~ There is a nonocclusive partial thrombosis in the small but distal left M1 segment. - 05/15/16- TTE: no cardioembolic source found ~ ASSESSMENT:~ 1.~ 45-60 minutes of speech disturbance and right arm weakness, most consistent with a transient ischemic attack or small stroke. 2.~ Distal small left M1 non-occlusive thrombus. 3.~ Occluded left ICA. 4.~ History of significant heart disease with current pacemaker. ~ RECOMMENDATIONS:~ - Blood pressure goal less than 220/120 for the next 24 hours then bp < 140/90 fci - Hold anti-platelet agents and continue heparin without a bolus.~ Will repeat CT angiogram on Sunday to see if small thrombus has resolved per discussion the [facility] stroke expert. - H1AC < 7.0 (6.9) - LDL < 70 (160), recommend starting moderate dose statin - Twenty-four telemetry, if this is unremarkable or if in paroxysmal atrial fibrillation, group home rhythm monitoring will be via~ interpretation by her primary Ekg Manager, Dr. Ceballos of her pacemaker - CT angiogram of the head, repeated on Sunday to see if a small nonocclusive thrombus resolved. - When heparin is no longer needed will plan on stopping outpatient aspirin and beginning Plavix 75 mg daily for long-term stroke prevention. - Followup 5 weeks after hospital discharge with the Neurology service is doing. ~ 35 min spent with patient and her , majority of time spent counseling on prognosis and treatment options. Objective: Vital Signs Temp Pulse Resp BP Pulse Ox 36.8 C 83 18 130/84 H 92 05/16/16 07:48 05/16/16 13:55 05/16/16 13:55 05/16/16 13:55 05/16/16 13:55 Laboratory Results 05/16/16 05:30 05/16/16 05:30 PT 13.9 SEC (12.0-15.0) 05/15/16 17:05 INR 1.08 (0.83-1.16) 05/15/16 17:05 Allergies/Adverse Reactions: azithromycin [Azithromycin] Allergy (Verified 05/15/16 08:19) lactose [Lactose] Allergy (Verified 05/15/16 08:19) meperidine HCl [From Demerol] Allergy (Verified 05/15/16 08:19) oxycodone HCl [From Percocet] Allergy (Verified 05/15/16 08:19)
[2016-05-16] MEDS: RAMIPRIL 2.5 MG CAP PO SCH (21:21)
[2016-05-16] MEDS: morphINE SR 15 MG TAB PO SCH (21:21)
[2016-05-17] MEDS: HEPARIN/DEXTROSE 500 ML IV SCH (02:14)
[2016-05-17] MEDS: LEVOTHYROXINE 50 MCG TAB PO SCH (05:50)
[2016-05-17 06:17] LABS: % IMMATURE GRANULYOCYTES 0.3 % (0.0-1.1); ABSOLUTE IMMATURE GRANULOCYTES 0.04 10^3/uL (0.00-0.10); ABSOLUTE NRBC COUNT 0.04 10^3/uL (0-0.01); ADD DIFF? NO; ADD MORPH? NO; ADD SCAN? NO; ATYPICAL LYMPHOCYTE FLAG 10 (0-99); FRAGMENT RBC FLAG 20 (0-99); HEMATOCRIT 38.2 % (38.0-47.0); HEMOGLOBIN 12.3 g/dL (12.6-16.3); LEFT SHIFT FLG 0 (0-99); LIPEMIA HEMOLYSIS FLAG 80 (0-99); MEAN CELL HEMOGLOBIN 30.9 pg (27.9-34.1); MEAN CELL HEMOGLOBIN CONCENTR. 32.2 g/dL (32.4-36.7); MEAN PLATELET VOLUME 11.9 fL (8.7-11.7); NRBC-AUTO% 0.3 % (0.0-0.2); PLATELET CLUMPS FLAG 20 (0-99); PLATELET COUNT 353 10^3/uL (150-400); RED BLOOD CELL COUNT 3.98 10^6/uL (4.18-5.33); RED CELL DISTRIBUTION WIDTH 17.7 % (11.5-15.2)
[2016-05-17 07:40] VITALS: O2SAT 93
[2016-05-17] MEDS: ATORVASTATIN CALCIUM 40 MG TAB PO SCH (07:41)
[2016-05-17] MEDS: FLUoxetine 20 MG CAP PO SCH (07:41)
[2016-05-17] MEDS: METOPROLOL SUCCINATE XR 25 MG TAB PO SCH (07:44)
[2016-05-17] MEDS ORDERED: IOPAMIDOL (ISOVUE-370) 150 ML BTL IV ONE (08:25)
[2016-05-17] MEDS: INSULIN LISPRO 100 UNIT/ML SC SCH ×2 (08:45→13:39)
[2016-05-17] MEDS ORDERED: METHOTREXATE 2.5 MG TAB PO SCH ×2 (09:00→18:00)
[2016-05-17 12:14] VITALS: BP 115/66; PULSE 90; RESP 16; TEMP 98.3
--- NOTE | 2016-05-17 17:39 | PDDCSUM ---
Discharge Summary Discharge Summary: Dates of service 05/15-05/17/16 Discharge diagnosis: # TIA # distal M1 thrombus # completely occluded L ICA # small right ICA aneurysm # CAD # psoriatic arthritis # chronic pain with continous narcotic use and dependency Consultations: neurology Procedures performed: head CT, CTA head and neck, echocardiogram Hospital course by problem: # TIA: no events on tele, echo without source. Does have completely occluded L ICA and m1 thrombus. Thrombus improved on f/u imaging after 48 hour heparin gtt. Dc on asa/plavix. # small right ICA aneurysm: likely does not reuire intervention but will be set up for nsg f/u # occluded Left ICA: as above, no indication for surgical intervention given complete occlusion # CAD: with hx of [place] and 5 stents, no chest pain or other acute issues, will need to f/u with Dr. Ceballos # psoriatic arthritis: continue mtx # chronic pain with continuous narcotic use and dependency: continue op meds, no acute issues # HLD: sent home on atorvastatin # DM: borderline DM with A1c of 6.9, continue metformin and dietary modification DC home f/u with neurology and nsg > 35 min spent in dc of patient more than half in counseling g of patient and her as well coordination of care
== END 2016-05-17 13:30 | disposition home or self-care (01) | DRG 68 ==
LOC: F1N 10:22 → OBSVTOIN 16:04
PROVIDERS: ADMIT Internal Medicine; ATTEND Internal Medicine
DX: I65.22 Occlusion and stenosis of left carotid artery (principal); R73.03 Prediabetes; I25.10 Atherosclerotic heart disease of native coronary artery without angina pectoris; L40.50 Arthropathic psoriasis, unspecified; G89.29 Other chronic pain; F11.20 Opioid dependence, uncomplicated; I25.2 Old myocardial infarction; Z95.5 Presence of coronary angioplasty implant and graft; Z95.1 Presence of aortocoronary bypass graft; Z95.0 Presence of cardiac pacemaker; Z87.891 Personal history of nicotine dependence; Z85.72 Personal history of non-Hodgkin lymphomas
CPT/HCPCS: 85520-90; 92610-GN; 97165-GO; J1644; J1815; Q9967

== ENCOUNTER → 2016-10-16 | Outpatient (CLI) | payer OTHER | LOC: FIMAGING 08:27 | PROVIDERS: ATTEND Internal Medicine | DX: Z12.31 Encounter for screening mammogram for malignant neoplasm of breast (principal) | CPT/HCPCS: G0202 ==

== ENCOUNTER → 2016-11-01 | Outpatient (CLI) | payer OTHER | LOC: FIMAGING 14:46 | PROVIDERS: ATTEND Internal Medicine | DX: N63 Unspecified lump in breast (principal) | CPT/HCPCS: G0206 ==

== ENCOUNTER → 2016-11-13 | Outpatient (CLI) | payer OTHER ==
[~2016-11-13] MED LIST: BUPIVACAINE 0.5% 10 ML SDV ONE; LIDO/EPI 1% **Not for Epidural 20 ML MDV ONE; LIDOCAINE 1% 300 MG/30 ML SDV ONE; THROMBIN (BOVINE) 5,000 UNIT VIAL TP ONE
== END ==
LOC: FIMAGING 07:11
PROVIDERS: ATTEND Internal Medicine
PROC: 0HBT3ZX Excision of Right Breast, Percutaneous Approach, Diagnostic (ICD-10-PCS; principal; 2016-11-13)
DX: D24.1 Benign neoplasm of right breast (principal)
CPT/HCPCS: G0206

== ENCOUNTER → 2017-12-20 | Outpatient (CLI) | payer OTHER | LOC: FIMAGING 15:43 | PROVIDERS: ATTEND Internal Medicine | DX: Z12.31 Encounter for screening mammogram for malignant neoplasm of breast (principal); D24.9 Benign neoplasm of unspecified breast ==

== ENCOUNTER → 2018-01-24 | Outpatient (CLI) | payer OTHER | LOC: FIMAGING 15:42 | PROVIDERS: ATTEND Internal Medicine | DX: R92.8 Other abnormal and inconclusive findings on diagnostic imaging of breast (principal) ==

== ENCOUNTER 2018-02-21 07:24 | Emergency (ER) | payer OTHER ==
[2018-02-21 07:30] VITALS: BP 126/94
[2018-02-21] MEDS ORDERED: DOXYCYCLINE HYCLATE 100 MG CAP/TAB PO ONE (07:51)
--- NOTE | 2018-02-21 07:55 | EDPHY ---
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 She was seen here and receives sutures. She was seen here again on the concern for wound infection. Her sutures were removed and she was started on Keflex. She has not been completely compliant with the Keflex but has been taking it 2-3 times per day for the last 3 days. She feels like her wound is getting worse. She feels like there is some fluctuance beneath that. Also some mild increased the erythema surrounding it. Severity: Moderate Modifying factors: Worsening despite antibiotics REVIEW OF SYSTEMS: Constitutional: denies: chills, fever, recent illness, recent injury EENTM: denies: blurred vision, double vision, nose congestion Respiratory: denies: cough, shortness of breath Cardiac: denies: chest pain, irregular heart rate, lightheadedness, palpitations Gastrointestinal/Abdominal: denies: abdominal pain, diarrhea, nausea, vomiting, blood streaked stools Genitourinary: denies: dysuria, frequency, hematuria, pain Musculoskeletal: denies: joint pain, muscle pain Skin: See HPI Neurological: denies: headache, numbness, paresthesia, tingling, dizziness, weakness Hematologic/Lymphatic: denies: blood clots, easy bleeding, easy bruising Immunologic/allergic: denies: HIV/AIDS, transplant 10 systems reviewed and negative except as noted EXAM: GENERAL: Well-appearing, well-nourished and in no acute distress. HEAD: Atraumatic, normocephalic. EYES: Pupils equal round and reactive to light, extraocular movements intact, sclera anicteric, conjunctiva are normal. ENT: TMs normal, nares patent, oropharynx clear without exudates. Moist mucous membranes. NECK: Normal range of motion, supple without lymphadenopathy or JVD. LUNGS: Breath sounds clear to auscultation bilaterally and equal. No wheezes rales or rhonchi. HEART: Regular rate and rhythm without murmurs, rubs or gallops. ABDOMEN: Soft, nontender, normoactive bowel sounds. No guarding, no rebound. No masses appreciated. BACK: No CVA tenderness, no spinal tenderness, step-offs or deformities EXTREMITIES: Normal range of motion, no pitting or edema. No clubbing or cyanosis. NEUROLOGICAL: Cranial nerves II through XII grossly intact. Normal speech, normal gait. 5/5 strength, normal movement in all extremities, normal sensation , normal reflexes PSYCH: Normal mood, normal affect. SKIN: Right lower leg wound infection. Surrounded by moderate amount of erythema. Feels fluctuant. Source: Patient Exam Limitations: No limitations - Personal History Current Tetanus/Diphtheria Vaccine: Yes Current Tetanus Diphtheria and Acellular Pertussis (TDAP): Yes Tetanus Vaccine Date: last 10 years - Medical/Surgical History Hx Asthma: No Hx Chronic Respiratory Disease: No Hx Diabetes: No Hx Cardiac Disease: Yes Hx Renal Disease: No Hx Cirrhosis: No Hx Alcoholism: No Hx HIV/AIDS: No Hx Splenectomy or Spleen Trauma: Yes Other PMH: psoriatic arthrithritis;DEC 2009-[facility];HEART CATH W/5 STENTS;PACEMAKER R /T HEART BLOCK. Spleenectomy 18 years ago with hodgkins lymphoma treated with radiation;Chronic H/A's - Family History Significant Family History: No pertinent family hx - Social History Smoking Status: Never smoked Alcohol Use: Sober Drug Use: None Constitutional: Initial Vital Signs Temperature (C) 36.6 C 02/21/18 07:28 Heart Rate 90 02/21/18 07:28 Respiratory Rate 16 02/21/18 07:28 Blood Pressure 126/94 H 02/21/18 07:28 O2 Sat (%) 93 02/21/18 07:28 O2 Delivery Mode Room Air Allergies/Adverse Reactions: amoxicillin Allergy (Verified 05/01/17 08:59) azithromycin [Azithromycin] Allergy (Verified 05/15/16 08:19) lactose [Lactose] Allergy (Verified 05/15/16 08:19) meperidine HCl [From Demerol] Allergy (Verified 05/15/16 08:19) oxycodone HCl [From Percocet] Allergy (Verified 05/15/16 08:19) Home Medications: Medication Instructions Recorded Aspirin [Aspirin 81mg (*)] 81 mg PO DAILY 01/05/15 FLUoxetine [Prozac 20 MG (*)] 20 mg PO DAILY 01/05/15 Methotrexate Sodium [Rheumatrex] 10 mg PO WE@0900 01/05/15 Methotrexate Sodium [Rheumatrex] 10 mg PO WE@1800 01/05/15 Metoprolol Succinate Xr [Toprol Xl 25 mg PO BID 01/05/15 25 mg (*)] Ramipril [Altace 2.5mg (*)] 2.5 mg PO HS 01/05/15 metFORMIN HCL [Glucophage 500 mg 500 mg PO BID 01/05/15 (*)] Hydrocodone/Acetaminophen [[place] 1 each PO Q6H PRN 05/15/16 7.5-325 Tablet] LORazepam [Ativan (*)] 1 mg PO HS PRN 05/15/16 Levothyroxine [Synthroid 50 mcg 50 mcg PO DAILY06 05/15/16 (*)] morphINE SR [Ms Contin/Oramorph 15 15 mg PO HS 05/15/16 mg (*)] Atorvastatin Calcium [Lipitor 40 40 mg PO DAILY #30 tab 05/17/16 mg (*)] Clopidogrel Bisulfate [Plavix] 75 mg PO DAILY #30 tablet 05/17/16 Cephalexin [Keflex] 500 mg PO QID #28 cap 02/18/18 Doxycycline Hyclate [Vibramycin] 100 mg PO BID #30 cap 02/21/18 Medical Decision Making ED Course/Re-evaluation: I did place a bedside ultrasound on the patient's wound. There does appear to be a fluid collection below. I then incised with an 11 blade scalpel but only obtained blood clots. No abscess. I will add doxycycline to the patient's Keflex. I encouraged her to be more vigilant at taking the Keflex. Her wound was dressed with bacitracin and sterile gauze. She is grateful declines further workup or testing at this time. We discussed indications for returning such as fever, increased erythema or drainage etc. Differential Diagnosis: Partial list of the Differential diagnosis considered include but were not limited to; wound infection, abscess, cellulitis and although unlikely based on the history and physical exam, I also considered sepsis, thrombosis. I discussed these differential diagnoses and the plan with the patient as well as the usual and expected course. The patient understands that the diagnosis is provisional and that in medicine we are not always correct and that further workup is often warranted. Usual and customary warnings were given. All of the patient's questions were answered. The patient was instructed to return to the emergency department should the symptoms at all worsen or return, otherwise to followup with the physician as we discussed. - Data Points Medications Given: Discontinued Medications Doxycycline Hyclate (Doxycycline Hyclate) 100 mg PO EDNOW ONE PRN Reason: Protocol Stop: 02/21/18 07:52 Last Admin: 02/21/18 08:03 Dose: 100 mg Departure - Departure Disposition: Home, Routine, Self-Care Clinical Impression: Wound infection Condition: Good Instructions: Wound Infection (ED) Referrals: Nasra Paredes MD [Medical Doctor] - 2-3 days, call for appt. Prescriptions: Doxycycline Hyclate [Vibramycin] 100 mg PO BID #30 cap
== END 2018-02-21 08:10 | disposition home or self-care (01) ==
PROC: 0H9KXZZ Drainage of Right Lower Leg Skin, External Approach (ICD-10-PCS; principal; 2018-02-21)
DX: L03.115 Cellulitis of right lower limb (principal)